=== PATIENT | male | born 1985 | race Two or more races ===

== ENCOUNTER 2021-04-07 02:31 | Emergency (ER) | payer OTHER, MEDICAID ==
[~2021-04-07] VITALS: Ht 172.7 cm; Wt 74.8 kg
[2021-04-07 02:55] VITALS: BP 158/82
== END 2021-04-07 03:32 | disposition left against medical advice (07) ==
LOC: EDBD 02:31 → ER 02:31
DX: M54.2 Cervicalgia (principal); M25.512 Pain in left shoulder; Z53.21 Procedure and treatment not carried out due to patient leaving prior to being seen by health care provider; V49.69XA Unspecified car occupant injured in collision with other motor vehicles in traffic accident, initial encounter; Y93.89 Activity, other specified; Y92.89 Other specified places as the place of occurrence of the external cause; Y99.8 Other external cause status